=== PATIENT | female | born 1950 | race Hispanic/Latino ===

== ENCOUNTER 2021-05-13 05:39 | Day surgery (SDC) | payer MEDICARE ==
[~2021-05-13] VITALS: Ht 154.9 cm; Wt 80.3 kg
[~2021-05-13 05:39] MED LIST: ASCO500T20 PO; ASPI-1443 PO; ATOR40TA71 PO; BUSP5TAB3 PO; CHOL200013 PO; CLOP75TA32 PO; CYAN50009 PO; LINA5TAB PO; METO-408 PO; OMEG100014 PO; PANT40TA55 PO; SEVE0.8P3 PO; TORS20TA4 PO
[2021-05-13] MEDS ORDERED: 0.9%NACL 1000ML 1,000 ML IV ONE (06:22)
[2021-05-13 06:30] VITALS: BP 190/56
[2021-05-13] MEDS ORDERED: PROPOFOL 10 MG/ML 20ML VIAL IV ONE (07:24)
[2021-05-13] MEDS ORDERED: LIDOCAINE HCL 1% 20 ML VIAL ONE (07:25)
[2021-05-13 07:35] VITALS: BP 124/99
[2021-05-13 07:40] VITALS: BP 80/40
[2021-05-13 07:45] VITALS: BP 94/43
[2021-05-13 07:50] VITALS: BP 109/45
[2021-05-13 08:05] VITALS: BP 110/52
== END 2021-05-13 08:05 | disposition home or self-care (01) ==
LOC: ENDO 05:39 → DAH 05:39 → ENDO 08:05
PROVIDERS: ATTEND Internal Medicine Gastroenterology
DX: K74.60 Unspecified cirrhosis of liver (principal); K76.6 Portal hypertension; K31.89 Other diseases of stomach and duodenum; K44.9 Diaphragmatic hernia without obstruction or gangrene; B18.1 Chronic viral hepatitis B without delta-agent; I25.10 Atherosclerotic heart disease of native coronary artery without angina pectoris; I13.11 Hypertensive heart and chronic kidney disease without heart failure, with stage 5 chronic kidney disease, or end stage renal disease; E11.22 Type 2 diabetes mellitus with diabetic chronic kidney disease; N18.6 End stage renal disease; I67.89 Other cerebrovascular disease; E78.5 Hyperlipidemia, unspecified; F41.9 Anxiety disorder, unspecified; F32.9 Major depressive disorder, single episode, unspecified; E03.9 Hypothyroidism, unspecified; Z86.73 Personal history of transient ischemic attack (TIA), and cerebral infarction without residual deficits; Z90.49 Acquired absence of other specified parts of digestive tract; Z98.84 Bariatric surgery status; Z20.822 Contact with and (suspected) exposure to COVID-19
CPT/HCPCS: 36415; 43235; 82948 ×2; 84132; 87635; A4215 ×2; A4221; A4222; A4223; A4606; A4620; A4663; C9803; J2704; J7030